=== PATIENT | female | born 1990 | race Caucasian/White ===

== ENCOUNTER 2018-12-25 10:10 | Day surgery (SDC) | payer OTHER ==
--- NOTE | 2018-12-24 18:17 | PREOPHP ---
DATE OF ADMISSION: 12/24/2018 HISTORY OF PRESENT ILLNESS: Ms. Nadeen Luo a 28-year-old 7, para 5, desires perman ent surgical sterilization. PAST MEDICAL HISTORY: None. MEDICATIONS: None. PAST SURGICAL HISTORY: None. OBSTETRICAL HISTORY: x5 vaginal deliveries, x2 termination of . GYNECOLOGIC HISTORY: 10, regular 3 to 4 days. Denies any sexually transmitted infections. Sexually active with 1 partner. SOCIAL HISTORY: Denies any smoking, drugs or alcohol. FAMILY HISTORY: None. REVIEW OF SYSTEMS: All within normal except history of present illness. PHYSICAL EXAMINATION: HEENT: Within normal. LUNGS: CTA bilateral. CARDIOVASCULAR: S1, S2, regular rhythm. ABDOMEN: Soft, nontender, negative distention. EXTREMITIES: Negative calf tenderness. VAGINAL: Normal external genitalia. Cervix negative CT, negative lesions. Adnexa negative mass, no ntender bilateral. Fundus within normal limits. ASSESSMENT: Multiparity, desires permanent surgical sterilization. PLAN: Consent for laparoscopic bilateral tubal sterilization. Risks, benefits and alternatives expl ained. All questions were answered. Dictated By: JIN CARLSON/POORNIMA Conf#: [id number] DID#: [id number]
[2018-12-25] VITALS (18 sets, daily range): BP systolic 110–141; BP diastolic 60–85; PULSE 58–80; RESP 11–20; Ht 167.6 cm; Wt 91.0 kg
[~2018-12-25] VITALS: Ht 167.6 cm; Wt 91.0 kg
[~2018-12-25 10:10] MED LIST: prenatal vitamin
[2018-12-25] MEDS ORDERED: PREN-17 PO (10:53)
[2018-12-25] MEDS ORDERED: LACTATED RINGER'S 1,000 ML IV SCH (11:30)
--- NOTE | 2018-12-25 13:07 | PREAC ---
Date/Time of Note Date/Time of Note DATE: 12/25/18 TIME: 13:06 Anesthesia Eval and Record Evaluation Time Pre-Procedure Interview DATE: 12/25/18 TIME: 13:06 Age 28 Sex female NPO: 8 hrs Preoperative diagnosis desired sterilization Planned procedure laparoscopic bilateral tubal ligation Past Medical History Past Medical History: Includes GI: Obesity Surgery & Anesthesia Issues No known issue Meds Anticoagulation: No Beta Estelle within 24 hr: No Reason Beta Estelle not given: Pt. not on B-Estelle Reported Medications Vit No.78/Iron/FA (Prenatabs FA Tablet) 1 Each Tablet, 1 TAB PO DAILY, TAB 12/25/18 Discontinued Reported Medications [ vitamin] No Conflict Check 12/24/18 Current Medications Lactated Ringer's 1,000 ml @ 30 mls/hr Q24H IV Last administered on 12/25/18at 11:22; Admin Dose 30 MLS/HR; Start 12/25/18 at 11:30 Meds reviewed: Yes Allergies Coded Allergies: No Known Allergy (Verified , 12/24/18) Allergies Reviewed: Yes Labs/Studies Labs Reviewed: Reviewed by anesthesiologist Blood Bank Test 12/25/18 10:55 Antibody Screen NEGATIVE Blood Type AB POSITIVE test: Negative Pre-procedure Exam Last vitals Vital Signs Date Temp Pulse Resp B/P (MAP) Pulse Ox O2 O2 Flow FiO2 Time Delivery Rate 12/25/18 97.7 74 16 112/60 97 Room Air 11:12 (77) Airway: Adequate mouth opening, Adequate thyromental dist Mallampati: Mallampati II Teeth: Normal Lung: Normal Heart: Normal ASA Physical Status ASA physical status: 2 Emergency: None Planned Anesthetic General/MAC: ETT Nerve block: TAP (bilateral) Planned Pain Management Single shot nerve block, Parenteral pain med Pre-operative Attestations Prior to commencing anesthesia and surgery, the patient was re-evaluated, there was verification of: *The patient's identity *The results of appropriate recent lab work and preoperative vital signs *The above evaluation not changing prior to induction *Anesthetic plan, risk benefits, alternative and complications discussed with patient/family; questions answered; patient/family understands, accepts and wishes to proceed. DESMOND JULIO MD Dec 25, 2018 13:07
[2018-12-25] MEDS ORDERED: ONDANSETRON 4 MG INJ IV PRN (13:30)
[2018-12-25] MEDS ORDERED: MEPERIDINE 25 MG INJ IV PRN (13:30)
[2018-12-25] MEDS ORDERED: MIDAZOLAM 1 MG/ML 2 ML INJ ONE (13:30)
[2018-12-25] MEDS ORDERED: FENTAnyl 50 MCG/ML VIAL ONE ×2 (13:30→14:29)
[2018-12-25] MEDS ORDERED: DIPHENHYDRAMINE 50 MG INJ IV PRN (13:30)
[2018-12-25] MEDS ORDERED: HYDROmorphONE 1 MG/5 ML IV SYRINGE IV PRN ×3 (13:30)
[2018-12-25] MEDS ORDERED: OXYCODONE/ACETAMINOPHEN (5/325) TAB PO PRN (13:30)
[2018-12-25] MEDS ORDERED: PROCHLORPERAZINE 10 MG INJ IV PRN (13:30)
[2018-12-25] MEDS ORDERED: FENTAnyl 50 MCG/ML VIAL IV PRN (13:30)
[2018-12-25] MEDS ORDERED: ROCURONIUM 50 MG INJ ONE (13:31)
[2018-12-25] MEDS ORDERED: LIDOCAINE 2% (SDV) 5 ML INJ ONE (13:31)
[2018-12-25] MEDS ORDERED: PROPOFOL 20 ML ONE (13:31)
[2018-12-25] MEDS ORDERED: ROPIVACAINE 0.5 % 30 ML VIAL ONE (13:35)
[2018-12-25] MEDS ORDERED: METOCLOPRAMIDE 10 MG INJ ONE (14:23)
[2018-12-25] MEDS ORDERED: DEXAMETHASONE 4 MG/ML 5 ML INJ ONE (14:23)
[2018-12-25] MEDS ORDERED: SUGAMMADEX SODIUM 200 MG/2 ML VIAL IV ONE (14:23)
[2018-12-25] MEDS ORDERED: ONDANSETRON 4 MG INJ ONE (14:23)
[2018-12-25] MEDS ORDERED: KETOROLAC 30 MG INJ ONE (14:23)
--- NOTE | 2018-12-25 14:35 | PAC ---
Date/Time of Note Date/Time of Note DATE: 12/25/18 TIME: 14:35 Post-Anesthesia Notes Post-Anesthesia Note Last documented vital signs Vital Signs Date Temp Pulse Resp B/P (MAP) Pulse Ox O2 O2 Flow FiO2 Time Delivery Rate 12/25/18 97.7 74 16 112/60 97 Room Air 14:32 (77) Activity: WNL Respiratory function: WNL Cardiovascular function: WNL Mental status: Baseline Pain reasonably controlled: Yes Hydration appropriate: Yes Nausea/Vomiting absent: Yes SUKHI MOONEY MD Dec 25, 2018 14:35
--- NOTE | 2018-12-25 17:58 | OPPN ---
Date/Time of Note Date/Time of Note DATE: 12/25/18 TIME: 17:56 Operative Report Planned Procedure Procedure date Dec 25, 2018 Procedure(s) laparoscopic bilateral tubal fulguration Performed by see signature line Slip Caster: JIN DOTSON MD 2nd Slip Caster none Anesthesiologist: SUKHI MOONEY MD Pre-procedure diagnosis Multiparity, desires permanent surgical sterilization. [id number] Anesthesia Type: [id number] general spinal Post-Procedure Post-procedure diagnosis same Findings normal uterus tubes and ovaries Estimated Blood Loss: minimal Specimen(s) none Grafts/Implant(s) none Complication(s) none JIN DOTSON MD Dec 25, 2018 17:58
--- NOTE | 2018-12-26 02:35 | OPR ---
DATE OF OPERATION: 12/25/2018 PREOPERATIVE DIAGNOSES: Multiparity, desires permanent sterilization. POSTOPERATIVE DIAGNOSES: Multiparity, desires permanent sterilization. OPERATION PERFORMED: Laparoscopic bilateral tubal fulguration. COMPUTING MACHINE OPERATOR: None. ANESTHESIA: General. COMPLICATIONS: None. ESTIMATED BLOOD LOSS: Minimal. FINDINGS: Normal uterus, tubes and ovaries. DESCRIPTION OF PROCEDURE: After explaining the risks, benefits and alternatives, the patient had con sent signed in chart. The patient was taken to the operating room where general anesthesia was obtai marshall without difficulty. The patient was then examined under anesthesia and found to have a small ant everted uterus with normal adnexa. She was then placed in a dorsal lithotomy position and prepared a nd draped in a sterile fashion. A heavy weighted speculum was then placed in the patient's vagina an d the anterior lip of the cervix was grasped with a single tooth tenaculum. A HUMI uterine manipulat or was then advanced into the uterus to provide means to manipulate the uterus. The speculum was the n removed from the vagina. Attention was turned to the patient's abdomen where a 5 mm skin incision was made in the umbilical fold. The Veress needle was carefully introduced into the peritoneal cavit y at 45-degree angle while tenting the abdominal wall. Intraperitoneal placement was confirmed by us e of water-filled syringe and drop in intra-abdominal pressure with insufflation of CO2 gas. The tro car and sleeve were then advanced without difficulty into the abdomen where intra-abdominal placement was confirmed by laparoscope. Pneumoperitoneum was obtained with 4 liters of CO2 gas and a 5 mm tro car and sleeve were then advanced without difficulty in the abdomen where intra-abdominal placement w as confirmed by laparoscope. A second skin incision was made 2 cm above the symphysis pubis in the m idline. The second trocar and sleeve were then advanced under direct visualization. A survey of the patient's pelvis and abdomen was found to be normal. At this point, the right fallopian tube was fu lgurated at multiple areas of the instruments and ampullary regions with good blanching and no bleedi ng from the mesosalpinx. Similarly, the left fallopian tube was fulgurated. The instruments were th en removed from the patient's abdomen and the incision was repaired with 3-0 Vicryl. The HUMI was th en removed from the patient's vagina. No bleeding was noted from the cervix. The patient tolerated the procedure well. Sponge, lap and needle counts were correct. The patient was taken to recovery r oom in stable condition. Dictated By: JIN CARLSON/POORNIMA Conf#: [id number] DID#: [id number] CC: JIN DOTSON MD;*EndCC*
== END 2018-12-25 16:40 | disposition home or self-care (01) ==
LOC: SDS 10:10
PROVIDERS: ATTEND Obstetrics & Gynecology
DX: Z30.2 Encounter for sterilization (principal); E66.9 Obesity, unspecified
CPT/HCPCS: 58670; 85025; 86850; 86900; 86901; J1100; J1170; J1885; J2250; J2405; J2765; J2795; J3010

== ENCOUNTER 2018-12-29 09:55 | Emergency (ER) | payer OTHER ==
[~2018-12-29] VITALS: Wt 79.0 kg
[~2018-12-29 09:55] MED LIST changes: +NITR-58 PO; +ONDA4TAB14 PO; +PREN-17 PO; -prenatal vitamin
[2018-12-29 10:00] VITALS: BP 108/67; PULSE 62; RESP 18
[2018-12-29] MEDS ORDERED: ONDANSETRON (ODT) 4 MG TAB ODT STA (10:17)
--- NOTE | 2018-12-29 13:38 | ERD ---
ER Documentation Chief Complaint Chief Complaint vomiting and diarrhea HPI 28-year-old female presenting with vomiting and diarrhea x4 days. Patient had a tubal ligation 1-1/2 weeks ago and developed generalized abdominal pain ever since. She denies any chest pain denies dizziness. Denies use of medications. Denies dysuria. Denies medical problems. NKDA. Surgical history denies. Social history denies ROS All systems reviewed and are negative except as per history of present illness. Medications Home Meds Active Scripts Nitrofurantoin Monohyd Macrocr* (Macrobid*) 100 Mg Capsr, 100 MG PO BID for 14 Days, CAP Prov:ANTON GAVIN PA-C 12/29/18 Ondansetron (Ondansetron Odt) 4 Mg Tab.rapdis, 4 MG PO Q6H PRN for NAUSEA AND/OR VOMITING, #10 TAB Prov:ANTON GAVIN PA-C 12/29/18 Reported Medications Vit No.78/Iron/FA (Prenatabs FA Tablet) 1 Each Tablet, 1 TAB PO DAILY, TAB 12/25/18 Discontinued Reported Medications [ vitamin] No Conflict Check 12/24/18 Allergies Allergies: Coded Allergies: No Known Allergy (Verified , 12/24/18) PMhx/Soc History of Surgery: No Anesthesia Reaction: No Hx Neurological Disorder: No Hx Respiratory Disorders: No Hx Cardiac Disorders: No Hx Psychiatric Problems: No Hx Miscellaneous Medical Probl: No Hx Alcohol Use: No Hx Substance Use: No Hx Tobacco Use: No FmHx Family History: No diabetes, No coronary disease, No other Physical Exam Vitals Vital Signs Date Temp Pulse Resp B/P (MAP) Pulse Ox O2 O2 Flow FiO2 Time Delivery Rate 12/29/18 97.5 62 18 108/67 99 10:00 (81) Physical Exam GENERAL: The patient is well-appearing, well-nourished, in no acute distress HEENT: Atraumatic. Conjunctivae are pink. Pupils equal, round, and reactive to light. There is no scleral icterus. Tympanic membranes clear bilaterally. Oropharynx clear. CHEST: Clear to auscultation bilaterally. There are no rales, wheezes or rhonchi. HEART: Regular rate and rhythm. No murmurs, clicks, rubs or gallops. ABDOMEN:Soft, nontender and nondistended. Good bowel sounds. No rebound or guarding. No gross peritonitis. No gross organomegaly or masses. Result Diagram: 12/29/18 1028 12/29/18 1028 Results 24 hrs Laboratory Tests Test 12/29/18 10:23 12/29/18 10:28 12/29/18 10:30 Urine Color MANAN Urine Clarity SLIGHTLY CLOUDY Urine pH 6.0 Urine Specific [place] 1.032 Urine Ketones NEGATIVE mg/dL Urine Nitrite NEGATIVE mg/dL Urine Bilirubin NEGATIVE mg/dL Urine Urobilinogen NEGATIVE mg/dL Urine Leukocyte Esterase TRACE Polo/ul Urine Microscopic RBC 27 /HPF Urine Microscopic WBC 12 /HPF Urine Squamous Epithelial Cells MODERATE /HPF Urine Mucus FEW /HPF Urine Hemoglobin 3+ mg/dL Urine Glucose NEGATIVE mg/dL Urine Total Protein 2+ mg/dl White Blood Count 7.8 10^3/ul Red Blood Count 5.11 10^6/ul Hemoglobin 15.2 g/dl Hematocrit 46.8 % Mean Corpuscular Volume 91.6 fl Mean Corpuscular Hemoglobin 29.7 pg Mean Corpuscular 32.5 g/dl Hemoglobin Concent Red Cell Distribution Width 13.1 % Platelet Count 297 10^3/UL Mean Platelet Volume 11.1 fl Immature Granulocytes % 0.100 % Neutrophils % 71.0 % Lymphocytes % 19.5 % Monocytes % 5.5 % Eosinophils % 3.5 % Basophils % 0.4 % Nucleated Red Blood Cells % 0.0 /100WBC Immature Granulocytes # 0.010 10^3/ul Neutrophils # 5.5 10^3/ul Lymphocytes # 1.5 10^3/ul Monocytes # 0.4 10^3/ul Eosinophils # 0.3 10^3/ul Basophils # 0.0 10^3/ul Nucleated Red Blood Cells # 0.0 10^3/ul Sodium Level 144 mmol/L Potassium Level 3.7 mmol/L Chloride Level 109 mmol/L Carbon Dioxide Level 22 mmol/L Anion Gap 13 Blood Urea Nitrogen 15 mg/dl Creatinine 0.67 mg/dl Est Glomerular Filtrat > 60 mL/min Rate mL/min Glucose Level 89 mg/dl Calcium Level 9.8 mg/dl Total Bilirubin 0.7 mg/dl Direct Bilirubin 0.00 mg/dl Indirect Bilirubin 0.7 mg/dl Aspartate Amino 196 IU/L Transf (AST/SGOT) Alanine 181 IU/L Aminotransferase (ALT/SGPT) Alkaline Phosphatase 108 IU/L Total Protein 8.4 g/dl Albumin 4.8 g/dl Globulin 3.60 g/dl Albumin/Globulin Ratio 1.33 Lipase 100 U/L POC Beta HCG, Qualitative NEGATIVE Current Medications Medications Dose Sig/Son Start Time Status Last (Trade) Ordered Route PRN Stop Time Admin Dose Reason Admin Ondansetron 4 mg ONCE STAT 12/29/18 DC 12/29/18 HCl (Zofran ODT 10:17 10:24 Odt) 12/29/18 10:19 Procedures/MDM DIAGNOSTIC IMAGING REPORT Patient: GIGI OROZCO : 1990 Age: 28 Sex: F MR #: [id number] DOS: 12/29/18 1017 Ordering MD: WILLIAM GAVIN PA-C Location: [facility] Room/Bed: PROCEDURE: US Pelvis. CLINICAL INDICATION: pelvic pain TECHNIQUE: Multiple sonographic images of the pelvis were obtained utilizing transabdominal and endovaginal technique. The images were reviewed on a PACS workstation. COMPARISON: None. FINDINGS: The uterus is normal in size with a normal appearance of the myometrium. The uterus measures 8.0 x 4.9 x 5.5 cm. The endometrial stripe is homogeneous in appearance and has the thickness of 10 mm. The ovaries are normal in size and echogenicity. Normal Doppler flow is identified in both ovaries. The right ovary measures 3.8 x 2.3 x 2.8 cm. The left ovary measures 3.3 x 1.8 x 2.4 cm. No free fluid is present within the pelvis. RPTAT: AA IMPRESSION: Unremarkable pelvic ultrasound. ER course: Zofran given in ED. MDM: 28-year-old female presenting with vomiting. Patient's ultrasound is within normal limits and blood work was within normal limits. Patient may have a early urinary tract infection will be discharged with antibiotics. I have low suspicion for pelvic abnormality or acute abdominal emergency. I have low suspicion for pelvic infection or postoperative complication. Patient is discharged with strict ER precautions and told to follow-up with primary care within 1 to 2 days for close evaluation. Patient is told symptoms change or worsen to return immediately to the ER. All questions answered at discharge. Departure Diagnosis: Primary Impression: UTI (urinary tract infection) Additional Impression: Vomiting Condition: Stable Patient Instructions: Vomiting (4Y-Adult) Referrals: COMMUNITY CLIN[facility] YOU HAVE RECEIVED A MEDICAL SCREENING EXAM AND THE RESULTS INDICATE THAT YOU DO NOT HAVE A CONDITION THAT REQUIRES URGENT TREATMENT IN THE EMERGENCY DEPARTMENT. FURTHER EVALUATION AND TREATMENT OF YOUR CONDITION CAN WAIT UNTIL YOU ARE SEEN IN YOUR DOCTORS OFFICE WITHIN THE NEXT 1-2 DAYS. IT IS YOUR RESPONSIBILITY TO MAKE AN APPOINTMENT FOR FOLOW-UP CARE. IF YOU HAVE A PRIMARY DOCTOR --you should call your primary doctor and schedule an appointment IF YOU DO NOT HAVE A PRIMARY DOCTOR YOU CAN CALL OUR PHYSICIAN REFERRAL HOTLINE AT IF YOU CAN NOT AFFORD TO SEE A PHYSICIAN YOU CAN CHOSE FROM THE FOLLOWING [facility] [address] [facility] [address] [facility] [address] [facility] [address] [facility] [address] [facility] [facility]. [address] Additional Instructions: FOLLOW UP WITH YOUR PRIMARY CARE PHYSICIAN TOMORROW.Return to this facility if you are not improving as expected. ANTON GAVIN PA-C Dec 29, 2018 13:38
== END 2018-12-29 12:15 | disposition home or self-care (01) ==
LOC: FTE 09:55
DX: N39.0 Urinary tract infection, site not specified (principal); R10.2 Pelvic and perineal pain
CPT/HCPCS: 36415; 76830; 76856; 80053; 81001; 81025; 83690; 85025; Z7502; Z7610